=== PATIENT | male | born 1930 | race Caucasian/White ===

== ENCOUNTER 2016-08-08 22:20 | Inpatient (IN) | payer OTHER ==
[~2016-08-08] VITALS: Ht 177.8 cm; Wt 57.6 kg
[~2016-08-08 22:20] MED LIST: ADULT LOW DOSE81 M1 PO; ANTACID CHEWAB1 EACH PO; ASPIRIN325 MG PO; DuoNeb IH; ECOTRIN325 MG PO; Habitrol,Nicoderm CQ TD; KEFLEX500 MG PO; LISINOPRIL; Levaquin PO; PEPCID20 MG PO; PERCOCET 5/31 TABLET PO; PREDNISONE20 MG PO; Pepcid PO; Protonix PO; TAMIFLU75 MG PO; Tums,OsCal PO; ZESTORETIC 10-1 EAC1 PO; Zestoretic,Prinzide PO; Zestril,Prinivil PO; predniSONE PO
[2016-08-08 23:14] LABS: EOSINOPHIL (%) 0.1 % (0-5); HEMATOCRIT 35.5 % (38.0-50.0); IMMATURE GRANULOCYTE (%) 0.1 % (0.0-0.7); IMMATURE GRANULOCYTE COUNT 0.1 K/uL; LYMPHOCYTE COUNT 0.4 K/uL (1.0-2.8); MCH 29.9 PG (29.0-34.0); MCHC 35.2 G/DL (30.0-36.0); MCV 84.9 FL (86-99); MEAN PLAT.VOLUME 9.4 uM^3 (9.0-12.4); MONOCYTE (%) 2.9 % (3-12); MONOCYTE COUNT 0.3 K/uL (0-0.8); NEUTROPHIL (%) 93.7 % (45-76); NEUTROPHIL COUNT 11.1 K/uL (1.8-6.4); PLATELET COUNT 241 K/uL (156-360); RBC DIS.WIDTH-CV 12.4 % (11.8-14.6); RBC DIS.WIDTH-SD 37.7 % (39-53); RED BLOOD COUNT 4.18 M/uL (4.00-5.50); WHITE BLOOD COUNT 11.9 K/uL (4.1-10.2)
[2016-08-08 23:25] LABS: CHLORIDE 96 mEq/L (99-109); POTASSIUM 4.3 mEq/L (3.7-5.4); SODIUM 129 mEq/L (136-147)
[2016-08-08 23:27] LABS: GLUCOSE 93 mg/dL (70-99)
[2016-08-08 23:28] LABS: ANION GAP 11 MEQ/L (2-14)
[2016-08-08 23:29] LABS: TOTAL BILIRUBIN 0.4 mg/dL (0.0-1.0)
[2016-08-08 23:31] LABS: ALKALINE PHOSPHATASE 73 IU/L (3-129); GFR ESTIMATE (CALCULATED) > 59 mL/min/
[2016-08-08 23:32] LABS: UREA NITROGEN (BUN) 14 mg/dL (9-23)
[2016-08-08 23:34] LABS: LIPASE 22 U/L (1.0-51.0)
[2016-08-08 23:36] LABS: TROP-I INTERPRETATION NEGATIVE; TROPONIN-I 0.03 ng/mL (0.0-0.30)
[2016-08-08] MEDS ORDERED: OMEPRAZOLE20 MG PO (23:42)
[2016-08-08] MEDS ORDERED: LO-DOSE ASPIRIN81 M2 PO (23:42)
[2016-08-08] MEDS ORDERED: ROBITUSSIN DM118 ML PO (23:43)
[2016-08-08] MEDS ORDERED: ALUM-MAG HYDRO360 ML PO (23:44)
[2016-08-09 00:45] LABS: ADD MIUA? YES; BILIRUBIN NEGATIVE; BLOOD NEGATIVE; COLOR YELLOW ((YELLOW)); GLUCOSE (STRIP) NEGATIVE; KETONES NEGATIVE; LEUKOCYTES TRACE; NITRITE NEGATIVE; PH, URINE 7.5 (5-8); PROTEIN (STRIP) NEGATIVE; SPECIFIC GRAVITY 1.013 (1.000-1.030); UROBILINOGEN 0.2 MG/DL (0.2-1.0)
[2016-08-09 01:04] LABS: EPITHELIAL CELLS RARE; RED BLOOD CELLS NONE SEEN /HPF (0-5)
[2016-08-09 01:06] LABS: BACTERIA NONE SEEN; CASTS NONE SEEN /LPF; CRYSTALS NONE SEEN; MUCUS NONE SEEN; UCUL ADDED? NO; WHITE BLOOD CELLS 0-5 /HPF (0-5)
[2016-08-09 03:04] LABS: INFLUENZA A VIRAL ANTIGEN NEGATIVE; INFLUENZA B VIRAL ANTIGEN NEGATIVE
[2016-08-09 07:23] LABS: INTERNAL CONTROL VALID? YES
[2016-08-09 08:14] LABS: EOSINOPHIL (%) 0.5 % (0-5); IMMATURE GRANULOCYTE (%) 0.8 % (0.0-0.7); IMMATURE GRANULOCYTE COUNT 0.3 K/uL; LYMPHOCYTE COUNT 0.2 K/uL (1.0-2.8); MONOCYTE (%) 2.3 % (3-12); MONOCYTE COUNT 0.1 K/uL (0-0.8); NEUTROPHIL (%) 91.6 % (45-76); NEUTROPHIL COUNT 3.6 K/uL (1.8-6.4)
[2016-08-09 08:21] LABS: POTASSIUM 4.1 mEq/L (3.7-5.4); SODIUM 132 mEq/L (136-147)
[2016-08-09 08:23] LABS: GLUCOSE 112 mg/dL (70-99)
[2016-08-09 08:24] LABS: ANION GAP 12 MEQ/L (2-14)
[2016-08-09 08:27] LABS: GFR ESTIMATE (CALCULATED) > 59 mL/min/
[2016-08-09 08:28] LABS: UREA NITROGEN (BUN) 16 mg/dL (9-23)
[2016-08-09 08:29] LABS: CHLORIDE 106 mEq/L (99-109)
[2016-08-09 09:16] VITALS: BP 115/57
[2016-08-09 09:30] LABS: HEMATOCRIT 32.6 % (38.0-50.0); MCH 30.3 PG (29.0-34.0); MCV 86.7 FL (86-99); PLAT.SUFFICIENCY DECREASED; PLATELET COUNT UNABLE TO REPORT K/uL (156-360); RBC DIS.WIDTH-CV 12.6 % (11.8-14.6); RBC DIS.WIDTH-SD 38.6 % (39-53); RED BLOOD COUNT 3.76 M/uL (4.00-5.50); USER ID TLN; WHITE BLOOD COUNT 3.9 K/uL (4.1-10.2)
[2016-08-09 11:32] VITALS: BP 126/58
[2016-08-09 15:21] VITALS: BP 114/56
[2016-08-09 16:36] LABS: ANION GAP 12 MEQ/L (2-14); CHLORIDE 104 MEQ/L (99-109); POTASSIUM 3.9 MEQ/L (3.7-5.4); SAMPLE HEMOLYSIS CHECK 0; SAMPLE ICTERIC CHECK 0; SAMPLE LIPEMIA CHECK 0; SODIUM 131 MEQ/L (136-147)
[2016-08-09 16:41] LABS: GFR ESTIMATE (CALCULATED) > 59 mL/min/; UREA NITROGEN (BUN) 19 mg/dL (9-23)
[2016-08-09 16:42] LABS: GLUCOSE 202 mg/dL (70-99)
[2016-08-09 19:18] VITALS: BP 110/53
[2016-08-09 23:50] VITALS: BP 122/56
[2016-08-10 03:57] VITALS: BP 129/63
[2016-08-10 06:57] LABS: ANION GAP 10 MEQ/L (2-14); CHLORIDE 105 MEQ/L (99-109); GFR ESTIMATE (CALCULATED) > 59 mL/min/; HEMATOCRIT 26.1 % (38.0-50.0); MCH 30.6 PG (29.0-34.0); MCHC 35.6 G/DL (30.0-36.0); MCV 85.9 FL (86-99); MEAN PLAT.VOLUME 9.9 uM^3 (9.0-12.4); PLATELET COUNT 197 K/uL (156-360); POTASSIUM 3.9 MEQ/L (3.7-5.4); RBC DIS.WIDTH-CV 13.1 % (11.8-14.6); RBC DIS.WIDTH-SD 41.1 % (39-53); RED BLOOD COUNT 3.04 M/uL (4.00-5.50); SAMPLE HEMOLYSIS CHECK 0; SAMPLE ICTERIC CHECK 0; SAMPLE LIPEMIA CHECK 0; SODIUM 134 MEQ/L (136-147); UREA NITROGEN (BUN) 22 mg/dL (9-23)
[2016-08-10 07:00] LABS: WHITE BLOOD COUNT 30.1 K/uL (4.1-10.2)
[2016-08-10 07:01] LABS: GLUCOSE 115 mg/dL (70-99)
[2016-08-10 08:02] VITALS: BP 127/58
[2016-08-10 09:33] LABS: INTERNAL CONTROL VALID? YES
[2016-08-10 11:39] LABS: D-DIMER ELISA 0.79 mg/L FEU (< 0.57)
[2016-08-10 16:46] VITALS: BP 138/63
[2016-08-10 19:54] VITALS: BP 184/77
[2016-08-10 23:47] VITALS: BP 137/79
[2016-08-11 03:45] VITALS: BP 147/80
[2016-08-11 06:32] LABS: HEMATOCRIT 26.6 % (38.0-50.0); MCH 30.3 PG (29.0-34.0); MCHC 35.3 G/DL (30.0-36.0); MCV 85.8 FL (86-99); MEAN PLAT.VOLUME 10.1 uM^3 (9.0-12.4); PLATELET COUNT 213 K/uL (156-360); RBC DIS.WIDTH-CV 13.3 % (11.8-14.6); RBC DIS.WIDTH-SD 41.2 % (39-53); WHITE BLOOD COUNT 29.2 K/uL (4.1-10.2)
[2016-08-11 06:55] LABS: ALKALINE PHOSPHATASE 35 IU/L (3-129); ANION GAP 9 MEQ/L (2-14); CHLORIDE 105 MEQ/L (99-109); GFR ESTIMATE (CALCULATED) > 59 mL/min/; GLUCOSE 117 mg/dL (70-99); POTASSIUM 3.7 MEQ/L (3.7-5.4); SAMPLE HEMOLYSIS CHECK 0; SAMPLE ICTERIC CHECK 0; SAMPLE LIPEMIA CHECK 0; SODIUM 134 MEQ/L (136-147); TOTAL BILIRUBIN 0.4 MG/DL (0.0-1.0); UREA NITROGEN (BUN) 22 mg/dL (9-23)
[2016-08-11 07:13] LABS: EOSINOPHIL (%) 0 % (0-5); IMMATURE GRANULOCYTE (%) 0.5 % (0.0-0.7); IMMATURE GRANULOCYTE COUNT 0.1 K/uL; LYMPHOCYTE COUNT 0.7 K/uL (1.0-2.8); MONOCYTE (%) 2.9 % (3-12); MONOCYTE COUNT 0.9 K/uL (0-0.8); NEUTROPHIL (%) 94.2 % (45-76); NEUTROPHIL COUNT 27.5 K/uL (1.8-6.4)
[2016-08-11 07:15] VITALS: BP 182/87
[2016-08-11 16:00] VITALS: BP 195/95
[2016-08-11 18:01] VITALS: BP 181/81
[2016-08-11 19:45] VITALS: BP 106/80; BP 160/80
[2016-08-11 23:15] VITALS: BP 160/74
[2016-08-12 04:00] VITALS: BP 176/81
[2016-08-12 07:02] LABS: HEMATOCRIT 28.2 % (38.0-50.0); MCH 29.6 PG (29.0-34.0); MCHC 34.8 G/DL (30.0-36.0); MCV 85.2 FL (86-99); PLATELET COUNT 242 K/uL (156-360); RBC DIS.WIDTH-CV 13.4 % (11.8-14.6); RBC DIS.WIDTH-SD 41.7 % (39-53); RED BLOOD COUNT 3.31 M/uL (4.00-5.50); WHITE BLOOD COUNT 28.6 K/uL (4.1-10.2)
[2016-08-12 07:11] LABS: EOSINOPHIL (%) 0 % (0-5); IMMATURE GRANULOCYTE (%) 0.6 % (0.0-0.7); IMMATURE GRANULOCYTE COUNT 0.2 K/uL; LYMPHOCYTE COUNT 1.4 K/uL (1.0-2.8); MONOCYTE (%) 3.3 % (3-12); MONOCYTE COUNT 0.9 K/uL (0-0.8); NEUTROPHIL (%) 91.2 % (45-76)
[2016-08-12 07:20] VITALS: BP 238/98
[2016-08-12 07:21] LABS: ALKALINE PHOSPHATASE 41 IU/L (3-129); ANION GAP 8 MEQ/L (2-14); CHLORIDE 105 MEQ/L (99-109); GFR ESTIMATE (CALCULATED) > 59 mL/min/; GLUCOSE 82 mg/dL (70-99); POTASSIUM 3.9 MEQ/L (3.7-5.4); SAMPLE HEMOLYSIS CHECK 0; SAMPLE ICTERIC CHECK 0; SAMPLE LIPEMIA CHECK 0; SODIUM 135 MEQ/L (136-147); TOTAL BILIRUBIN 0.5 MG/DL (0.0-1.0); UREA NITROGEN (BUN) 18 mg/dL (9-23)
[2016-08-12 09:30] VITALS: BP 178/88
[2016-08-12 16:16] VITALS: BP 158/80
[2016-08-13 00:35] VITALS: BP 171/76
[2016-08-13 07:26] LABS: ANION GAP 8 MEQ/L (2-14); CHLORIDE 104 MEQ/L (99-109); GFR ESTIMATE (CALCULATED) > 59 mL/min/; GLUCOSE 86 mg/dL (70-99); POTASSIUM 3.6 MEQ/L (3.7-5.4); SAMPLE HEMOLYSIS CHECK 0; SAMPLE ICTERIC CHECK 0; SAMPLE LIPEMIA CHECK 0; SODIUM 134 MEQ/L (136-147); UREA NITROGEN (BUN) 15 mg/dL (9-23)
[2016-08-13 07:51] VITALS: BP 145/74
[2016-08-13 08:01] VITALS: BP 154/77
[2016-08-13 08:07] LABS: EOSINOPHIL (%) 0.1 % (0-5); HEMATOCRIT 29.1 % (38.0-50.0); IMMATURE GRANULOCYTE (%) 3.6 % (0.0-0.7); IMMATURE GRANULOCYTE COUNT 0.5 K/uL; LYMPHOCYTE COUNT 1.5 K/uL (1.0-2.8); MCH 29.9 PG (29.0-34.0); MCHC 34.7 G/DL (30.0-36.0); MCV 86.1 FL (86-99); MEAN PLAT.VOLUME 10.3 uM^3 (9.0-12.4); MONOCYTE (%) 7.2 % (3-12); MONOCYTE COUNT 1.1 K/uL (0-0.8); NEUTROPHIL (%) 78.9 % (45-76); NEUTROPHIL COUNT 11.8 K/uL (1.8-6.4); PLATELET COUNT 253 K/uL (156-360); RBC DIS.WIDTH-CV 13.4 % (11.8-14.6); RBC DIS.WIDTH-SD 42.4 % (39-53); RED BLOOD COUNT 3.38 M/uL (4.00-5.50)
[2016-08-13 08:08] LABS: WHITE BLOOD COUNT 14.9 K/uL (4.1-10.2)
[2016-08-13 08:18] LABS: HEMATOLOGY COMMENT 1 SMEAR COMPATIBLE; PLAT.SUFFICIENCY ADEQUATE; USER ID SDF
[2016-08-13] MEDS ORDERED: PREDNISONE10 MG PO (14:44)
[2016-08-13] MEDS ORDERED: SPIRIVA RESPIMAT4 GM IH (14:44)
[2016-08-13] MEDS ORDERED: CEFDINIR300 MG PO (14:44)
== END 2016-08-13 15:22 | disposition home or self-care (01) | DRG 871 ==
LOC: EME 22:20 → EDOF 08-09 01:19 → 2EAST 08-09 01:19
PROVIDERS: Emergency Medicine; Family Medicine; Hospitalist; Internal Medicine; Internal Medicine Pulmonary Disease
DX: A41.9 Sepsis, unspecified organism (principal); J96.01 Acute respiratory failure with hypoxia; J18.9 Pneumonia, unspecified organism; E87.1 Hypo-osmolality and hyponatremia; J44.1 Chronic obstructive pulmonary disease with (acute) exacerbation; E87.2 Acidosis; R41.0 Disorientation, unspecified; I10 Essential (primary) hypertension; K21.9 Gastro-esophageal reflux disease without esophagitis; F17.210 Nicotine dependence, cigarettes, uncomplicated; N28.9 Disorder of kidney and ureter, unspecified
CPT/HCPCS: 70450; 71010; 71020; 71275; 80048; 80048 91; 80053; 81003; 83605; 83690; 83930; 83935; 84300; 84484; 85025; 85027; 85049; 85379; 87040; 87070; 87205; 87449; 87502; 92610 GN; 93005; 94640; 94640 76; 94760; 94799; 99202; 99281; 99285; J0360; J0456; J0696; J1630; J1644; J2543; J2930; J3370; J7030; J7050; J7512

== ENCOUNTER 2017-07-18 11:17 | Inpatient (IN) | payer OTHER ==
[~2017-07-18] VITALS: Ht 177.8 cm; Wt 50.7 kg
[~2017-07-18 11:17] MED LIST changes: +CEFDINIR300 MG PO; +LISINOPRIL40 MG PO; +LO-DOSE ASPIRIN81 M2 PO; +MAG-AL LIQUID30 ML PO; +PREDNISONE10 MG PO; +PRILOSEC10 MG PO; +ROBITUSSIN DM118 ML PO; +SPIRIVA RESPIMAT4 GM IH; -ZESTORETIC 10-1 EAC1 PO
[2017-07-18 12:38] LABS: HEMATOCRIT 34.7 % (38.0-50.0); HEMOGLOBIN 12.2 G/DL (12.5-16.6); MCH 30.6 PG (29.0-34.0); MCHC 35.2 G/DL (30.0-36.0); PLATELET COUNT 193 K/uL (156-360); RBC DIS.WIDTH-CV 13.3 % (11.8-14.6); RBC DIS.WIDTH-SD 42.5 % (39-53); RED BLOOD COUNT 3.99 M/uL (4.00-5.50); WHITE BLOOD COUNT 19.8 K/uL (4.1-10.2)
[2017-07-18 12:43] LABS: CHLORIDE 95 mEq/L (99-109); POTASSIUM 4.7 mEq/L (3.7-5.4); SODIUM 126 mEq/L (136-147)
[2017-07-18 12:45] LABS: GLUCOSE 121 mg/dL (70-99)
[2017-07-18 12:49] LABS: CREATININE 1.9 mg/dL (0.6-1.3); GFR ESTIMATE (CALCULATED) 36 mL/min/ (58.99-99999); UREA NITROGEN (BUN) 49 mg/dL (9-23)
[2017-07-18 12:56] LABS: TROP-I INTERPRETATION NEGATIVE; TROPONIN-I 0.03 ng/mL (0.0-0.30)
[2017-07-18 19:30] VITALS: BP 124/58
[2017-07-18 23:32] VITALS: BP 103/51
[2017-07-19 03:20] VITALS: BP 124/60
[2017-07-19 06:29] LABS: HEMATOCRIT 31.8 % (38.0-50.0); MCH 30.6 PG (29.0-34.0); MCHC 34.6 G/DL (30.0-36.0); MCV 88.3 FL (86-99); PLATELET COUNT 171 K/uL (156-360); RBC DIS.WIDTH-CV 13.6 % (11.8-14.6); RBC DIS.WIDTH-SD 44.3 % (39-53); WHITE BLOOD COUNT 15.8 K/uL (4.1-10.2)
[2017-07-19 07:27] LABS: CHLORIDE 99 MEQ/L (99-109); GFR ESTIMATE (CALCULATED) 56 mL/min/ (58.99-99999); POTASSIUM 3.9 MEQ/L (3.7-5.4); SODIUM 129 MEQ/L (136-147); UREA NITROGEN (BUN) 38 mg/dL (9-23)
[2017-07-19 07:34] VITALS: BP 137/66
[2017-07-19 07:41] LABS: CREATININE 1.3 MG/DL (0.6-1.3); GLUCOSE 182 mg/dL (70-99)
[2017-07-19 10:53] VITALS: BP 138/66
[2017-07-19 15:59] VITALS: BP 136/66
[2017-07-19 20:23] VITALS: BP 137/65
[2017-07-20 00:01] VITALS: BP 148/69
[2017-07-20 04:16] VITALS: BP 158/75
[2017-07-20 07:05] VITALS: BP 158/72
[2017-07-20 07:05] LABS: CHLORIDE 99 MEQ/L (99-109); CREATININE 1.1 MG/DL (0.6-1.3); GFR ESTIMATE (CALCULATED) > 59 mL/min/ (58.99-99999); GLUCOSE 132 mg/dL (70-99); POTASSIUM 4.1 MEQ/L (3.7-5.4); SODIUM 133 MEQ/L (136-147); UREA NITROGEN (BUN) 45 mg/dL (9-23)
[2017-07-20 07:11] LABS: HEMATOCRIT 32.8 % (38.0-50.0); HEMOGLOBIN 11.8 G/DL (12.5-16.6); MCH 30.8 PG (29.0-34.0); MCV 85.6 FL (86-99); RBC DIS.WIDTH-CV 13.5 % (11.8-14.6); RBC DIS.WIDTH-SD 41.9 % (39-53); RED BLOOD COUNT 3.83 M/uL (4.00-5.50); WHITE BLOOD COUNT 18.5 K/uL (4.1-10.2)
[2017-07-20 07:25] LABS: PLATELET COUNT 245 K/uL (156-360)
[2017-07-20 11:05] VITALS: BP 153/67
[2017-07-20] MEDS ORDERED: MEDROL DOSEPAK4 MG PO (11:10)
[2017-07-20] MEDS ORDERED: CEFTIN500 MG PO (11:10)
[2017-07-20] MEDS ORDERED: PROAIR HFA8.5 GM IH (11:11)
== END 2017-07-20 01:22 | disposition left against medical advice (07) | DRG 871 ==
LOC: EME 11:17 → EDOF 15:09 → 5SOUTH 15:09 → ENRESERV 15:18 → 5SOUTH 16:32
PROVIDERS: Emergency Medicine; Family Medicine
DX: A41.9 Sepsis, unspecified organism (principal); J15.9 Unspecified bacterial pneumonia; R65.20 Severe sepsis without septic shock; J96.01 Acute respiratory failure with hypoxia; J44.0 Chronic obstructive pulmonary disease with (acute) lower respiratory infection; J44.1 Chronic obstructive pulmonary disease with (acute) exacerbation; N17.9 Acute kidney failure, unspecified; R06.03 Acute respiratory distress; R09.02 Hypoxemia; E22.2 Syndrome of inappropriate secretion of antidiuretic hormone; E87.2 Acidosis; Z91.19 Patient's noncompliance with other medical treatment and regimen; I10 Essential (primary) hypertension; K21.9 Gastro-esophageal reflux disease without esophagitis; R00.0 Tachycardia, unspecified; R07.89 Other chest pain; Z66 Do not resuscitate; F17.200 Nicotine dependence, unspecified, uncomplicated; Z68.1 Body mass index [BMI] 19.9 or less, adult; Z80.0 Family history of malignant neoplasm of digestive organs; Z82.49 Family history of ischemic heart disease and other diseases of the circulatory system; Z86.73 Personal history of transient ischemic attack (TIA), and cerebral infarction without residual deficits
CPT/HCPCS: 71020; 71250; 80048; 83605; 84484; 85027; 87040; 87070; 87205; 87449; 87502; 93005; 94640; 94640 76; 94799; 99202; 99281; 99285; J0456; J0696; J1644; J1956; J2930; J7030; J7512